=== PATIENT | female | born 1970 | race Two or more races ===

== ENCOUNTER 2019-07-02 02:58 | Inpatient (IN) | payer OTHER ==
[2019-07-02] VITALS (26 sets, daily range): BP systolic 86–128; BP diastolic 48–86
[~2019-07-02] VITALS: Ht 165.1 cm; Wt 78.0 kg
--- NOTE | 2019-07-02 03:03 | NUR ---
SEIZURE PRECAUTIONS IMPLEMENTED. SUCTION READY AT BEDSIDE. SIDERAILS PADDED.
--- NOTE | 2019-07-02 03:07 | NUR ---
PATIENT CAME TO ER BED 5 C/O WITNESSED SEIZURE FROM HOME BY FAMILY BIBRA 60. PATIENT HAS A HISTORY OF SEIZURES. PATIENT WAS GIVEN 5MG OF VERSED ON THE FIELD. PATIENT IS ON NON-REBREATHER AT 15L/MIN. PATIENT IS AAOX0. PATIENT IS NOT AROUSABLE. BREATHING EVENLY AND UNLABORED. CONNECTED TO DENTURES LAB TECHNICIAN.
[2019-07-02] MEDS ORDERED: LORAZEPAM INJ 2 MG/ML VIAL ONE (03:12)
--- NOTE | 2019-07-02 03:12 | NUR ---
NOTED SEIZURE LASTING APPROX 2 MINUTES. PT PLACED ON NONREBREATHER, STILL ON CONTINUOUS TELEPHONE CLERK TELEGRAPH OFFICE. NO ORAL TRAUMA NOTED. WILL CONTINUE TO MONITOR
[2019-07-02] MEDS ORDERED: LORAZEPAM INJ 2 MG/ML VIAL IV ONE (03:30)
[2019-07-02] MEDS ORDERED: IV NS 0.9% 1,000 ML BAG IV ONE (03:30)
--- NOTE | 2019-07-02 03:36 | NUR ---
NOTED SECOND SEIZURE LAST APPROX 45 SEC
[2019-07-02] MEDS ORDERED: LEVETIRACETAM (500MG) 500 MG/5 ML VIAL IV ONE (03:42)
[2019-07-02 03:45] LABS: BASOPHILS % (AUTO) 0.2 % (0.0-2.0); EOSINOPHILS % (AUTO) 0.6 % (0.0-6.0); HEMATOCRIT 39 % (33-45); HEMOGLOBIN 12.7 g/dL (11.5-14.8); LYMPHOCYTES # (AUTO) 1.4 /CMM (0.8-4.8); LYMPHOCYTES % (AUTO) 12.1 % (20.0-44.0); MEAN CORPUSCULAR HGB CONC 33 g/dl (31.0-36.0); MEAN CORPUSCULAR VOLUME 91 fL (82-100); MONOCYTES # (AUTO) 0.7 /CMM (0.1-1.30); MONOCYTES % (AUTO) 5.9 % (2.0-12.0); NEUTROPHILS # (AUTO) 9.3 /CMM (1.8-8.9); NEUTROPHILS % (AUTO) 81.2 % (43.0-81.0); PLATELET COUNT (AUTO) 199 /CMM (150-450); RED BLOOD CELL COUNT(AUTO) 4.26 MIL/uL (4.0-5.2); WHITE BLOOD COUNT (AUTO) 11.5 K/uL (4.3-11.0)
[2019-07-02 03:47] LABS: CALCIUM, SERUM 8.6 mg/dL (8.5-10.1); CARBON DIOXIDE 21 mmol/L (21-32); CHLORIDE 102 mmol/L (98-107); CREATININE 1.3 mg/dL (0.6-1.3); GLUCOSE 104 mg/dL (74-106); POTASSIUM 3.7 mmol/L (3.5-5.1); SODIUM SERUM 140 mmol/L (136-145); UREA NITROGEN, BLOOD 11 mg/dL (7-18)
--- NOTE | 2019-07-02 03:50 | NUR ---
NOTED SEIZURE LASTING APPROX 1 MINUTE. PT STILL ON NONREBREATHER AND CONTINUOUS COMMUNITY REPRESENTATIVE AND PULSE OX. WILL CONTINUE TO MONITOR
--- NOTE | 2019-07-02 03:52 | NUR ---
Madelyn herrera in ED - 07/02/19 at 0357 by DAMIAN PT BROUGHT BY RADIOLOGY TO CT [facility]IA [facility]
--- NOTE | 2019-07-02 03:52 | NUR ---
PT BROUGHT BY RADIOLOGY TO CT PER ACLS PROTOCOL, RN AT BEDSIDE
[2019-07-02 03:53] LABS: ALANINE AMINOTRANSFERASE 19 U/L (12-78); ALBUMIN 3.7 g/dL (3.4-5.0); ALKALINE PHOSPHATASE 123 U/L (46-116); ASPARTATE AMINOTRANSFERASE 31 U/L (15-37); BILIRUBIN,DIRECT 0.1 mg/dL (0.0-0.2); BILIRUBIN,TOTAL 0.4 mg/dL (0.2-1.0); TOTAL PROTEIN, SERUM 7.7 g/dL (6.4-8.2)
[2019-07-02 03:56] LABS: ALCOHOL, BLOOD < 3 mg/dL (0-0)
[2019-07-02] MEDS ORDERED: LEVETIRACETAM (500MG) 500 MG in IV NS 0.9% 100 ML IV SCH (04:00)
--- NOTE | 2019-07-02 04:18 | NUR ---
NOTED SEIZURE LASTING APPROX 30 SECONDS. PT STILL ON CONTINUOUS ROAD CREW MEMBER AND PULSE OX. WILL CONTINUE TO MONITOR
[2019-07-02 04:21] LABS: ABG BASE EXCESS -9.7 mmol/L; ABG OXYGEN SATURATION 95.2 % (92.0-98.5); ABG PCO2 97.2 mmHg (35.0-45.0); ABG PH 6.996 (7.350-7.450); ABG PO2 116.2 mmHg (75.0-100.0); AaDO2 499.6 mmHg; COHb 0.3 % (0.5-1.5); MetHb 0.7 % (0.0-1.5); O2Hb 94.2 % (94.0-97.0); SITE, ABG Left Radial; VENT MODE, BG NRB 15L 100%
--- NOTE | 2019-07-02 04:45 | NUR ---
ETOMIDATE 20MG GIVEN PER DR. MENA'S ORDER AT THE BED SIDE
--- NOTE | 2019-07-02 04:46 | NUR ---
SUCCINYLCHOLINE [address] MENA'S ORDER AT THE BED SIDE
--- NOTE | 2019-07-02 04:48 | NUR ---
RT NOTES PT ORALLY INTUBATED BY RAMEZ VELAZCO WITH 7.5 ETT SECURED 25CM @THE LIP LINE. COLOR CHANGE CONFIRMED ON CO2 DETECTOR. MIST IN TUBE AND EQUAL CHEST RISE NOTED. PT PLACED ON MECH VENT ON ER ORDERED SETTINGS. PT SUCTIONED LARGE AMOUNT OF BLOODY SECRETIONS. ALARMS SET AND AUDIBLE. AMBUBAG AT BEDSIDE. VENT PLUGGED INTO RED OUTLET. WILL CONT TO MONITOR. Addendum: 07/02/19 at 0533 by FELICIA WINKLER RT Amended: Links added.
[2019-07-02] MEDS ORDERED: PROPOFOL 100 ML ONE (04:50)
--- NOTE | 2019-07-02 04:51 | NUR ---
DR. MENA ON THE PHONE WITH DR. HUA (WAN VELAZCO)
--- NOTE | 2019-07-02 04:52 | NUR ---
PT GOT INTUBATED SUCCESSFULLY AT THE BED SIDE BY DR. MENA .
--- NOTE | 2019-07-02 04:54 | NUR ---
DR. MENA ON THE PHONE WITH DR. LINO
[2019-07-02] MEDS ORDERED: SUCCINYLCHOLINE CHLORIDE 20 MG/ML VIAL IV ONE ×2 (05:00→09:45)
[2019-07-02] MEDS ORDERED: ETOMIDATE 2 MG/ML VIAL IV ONE ×2 (05:00→09:45)
--- NOTE | 2019-07-02 05:10 | NUR ---
ng was placed in the R nostril , gastric juice noted, placement checked by two RNs, x ray at the bed side
--- NOTE | 2019-07-02 05:11 | NUR ---
BED ASSIGNMENT 253
[2019-07-02] MEDS ORDERED: MIDAZOLAM 50 MG/10 ML VIAL ONE (05:19)
[2019-07-02] MEDS ORDERED: LEVE500T9 PO (05:22)
[2019-07-02 05:33] LABS: APPEARANCE,URINE Clear (CLEAR); BILIRUBIN,URINE Negative (NEGATIVE); BLOOD, URINE Small Ery/uL (NEGATIVE); COLOR,URINE Yellow (YELLOW); KETONES,URINE Negative (NEGATIVE); LEUKOCYTE ESTERASE ,URINE Negative (NEGATIVE); NITRITE, URINE Negative (NEGATIVE); PROTEIN,URINE 30 mg/dl (NEGATIVE); UGLUCOSE Negative (NEGATIVE)
--- NOTE | 2019-07-02 05:43 | NUR ---
REPORT GIVEN TO KAVYA HUNTER FOR NICHOLAS.
--- NOTE | 2019-07-02 05:44 | NUR ---
RECEIVED REPORT FROM ER NURSE MICHAEL HUNTER FOR NICHOLAS.
--- NOTE | 2019-07-02 05:57 | NUR ---
PT TRANSFERED PER ACLS PROTOCOL
[2019-07-02 05:58] LABS: BACTERIA,URINE Few /HPF (None Seen); SQUAMOUS EPITHELIAL CELL,UR Moderate /HPF (None Seen); WBC,URINE 0-2 /HPF (0-3)
[2019-07-02] MEDS ORDERED: PIPERACILLIN /TAZOBACTAM 3.375 G in IV D5W 50 ML IV SCH (06:00)
[2019-07-02] MEDS ORDERED: LEVETIRACETAM (500MG) 750 MG in IV NS 0.9% 100 ML IV SCH (06:00)
[2019-07-02] MEDS ORDERED: ALBUTEROL FS 2.5 MG/0.5 ML VIAL.NEB NEB PRN (06:00)
[2019-07-02] MEDS ORDERED: ACETAMINOPHEN 650 MG/SUPP.RECT RC PRN (06:00)
[2019-07-02 06:28] LABS: ABG BASE EXCESS -5.6 mmol/L; ABG OXYGEN SATURATION 96.6 % (92.0-98.5); ABG PCO2 54.9 mmHg (35.0-45.0); ABG PH 7.228 (7.350-7.450); ABG PO2 96.3 mmHg (75.0-100.0); AaDO2 561.8 mmHg; COHb 0.3 % (0.5-1.5); MetHb 0.2 % (0.0-1.5); O2Hb 96.1 % (94.0-97.0); SITE, ABG Right Radial
--- NOTE | 2019-07-02 06:29 | NUR ---
ABG RESULTS GIVEN TO CHARGE NURSE. CHARGE NURSE IS CONTACTING DR LINO. WAITING FOR FURTHER ORDERS.
[2019-07-02] MEDS: ENOXAPARIN SODIUM 40 MG/0.4 ML DISP.SYRIN SQ SCH (06:41)
[2019-07-02] MEDS ORDERED: PIPERACILLIN /TAZOBACTAM 3.375 G VIAL IV ONE (06:41)
--- NOTE | 2019-07-02 06:57 | NUR ---
FUR CLIPPER NOTES RECEIVED PATIENT FROM ER, PT IS A/O X0, CAME FROM HOME VIA AMBULANCE DUE TO SEIZURE. ADMITTING DIAGNOSIS IS SEIZURE DISORDER, PATIENT IS INTUBATED, WITH SETTING ORDERED. TRACH/ETT 7.5/25, AC 24, TV 450, FIO2 100%, AND PEEP OF 5. PATIENT IS PLACED ON MOTOR VEHICLE LICENSE CLERK WITH SINUS RHYTHM NOTED. PATIENT IS PLACED ON SEIZURE PRECAUTIONS. BED SIDE RAILS HAVE BEEN PADDED. PATIENT HAD ONE SEIZURE AT 0558 LASTS FOR 30SECONDS, PATIENT HAD A ANOTHER SEIZURE AT 0616 WHICH LASTED FOR 53 SECONDS, MD IS AWARE. PATIENT HAS A FOX CATHETER IN PLACE, INTACT AND DRAINING URINE. NGT IS IN PLACE IN THE LEFT NOSTRIL, INTACT, PATENT AND FLUSHED WELL. CHECKED PLACEMENT VIA AUSCULTATION. IV ACCESS ON LEFT WRIST 20 GAUGE AND RAC #18, BOTH INTACT PATENT AND FLUSHED WELL. PATIENT WAS SWABBED FOR COVID IN THE ER, ISOLATION PRECAUTIONS ARE IN PLACE. ISOLATION IS OBSERVED FOR COVID R/O. PATIENT SAFETY IS BEING MAINTAINED, CALL LIGHT WITHIN REACH, WILL CONTINUE TO MONITOR.
[2019-07-02] MEDS ORDERED: LORAZEPAM INJ 2 MG/ML VIAL IV PRN (07:00)
[2019-07-02] MEDS ORDERED: IV NS 0.9% 250 ML IV ONE (07:00)
[2019-07-02] MEDS ORDERED: phenytoin SODIUM IV 1,000 MG in IV NS 0.9% 100 ML IV STA (07:04)
[2019-07-02] MEDS: PROPOFOL 100 ML IV PRN ×4 (07:05→20:17)
--- NOTE | 2019-07-02 07:15 | NUR ---
DR. FLYNN NEUROLOGIST CALLED AND FACE TIME THE PATIENT. MD WILL PUT IN THE ORDERS. WILL ENDORSE TO AM NURSE FOR NICHOLAS.
--- NOTE | 2019-07-02 07:32 | NUR ---
ENDORSE PATIENT TO AM NURSE TO NICHOLAS.
--- NOTE | 2019-07-02 08:00 | NUR ---
ICU/RN INITIAL NOTES, AM RECEIVED REPORT FROM NIGHT NURSE. PT INTUBATED ETT 7.5/25CM AT THE LIP, ON VENT SETTINGS ORDERED BY MD. SEIZURE PRECAUTIONS TAKEN, PT BROUGHT IN FOR SEIZURE ACTIVITY. SINUS ON TELE. TEMP PROBE PLACE, PT NOTED TO HAVE FEVER 101.6, COOLING MEASURES TAKEN. PIV'S ASSESSED, LEFT INFILTRATED, WILL REMOVE. ORDERS RECEIVED FOR PICC LINE INSERTION. FOX CATH IN PLACE, DRAINING YELLOW URINE. RIGHT NGT IN PLACE, PLACEMENT VERIFIED. ON BILATERAL SOFT WRIST RESTRAINTS, WILL ASSESS PER PROTOCOL. ALL NEEDS WILL BE ATTENDED TO, SAFETY MEASURES TAKEN BED IN LOW POSITION, SIDE RAILS UP, CALL LIGHT WITHIN REACH
[2019-07-02] MEDS: Potassium Chloride 10 MEQ in IV D5/ 0.9% NACL 1,000 ML IV PRN ×2 (08:43→22:54)
[2019-07-02 08:55] LABS: ABG BASE EXCESS -3.9 mmol/L; ABG OXYGEN SATURATION 96.7 % (92.0-98.5); ABG PCO2 29.3 mmHg (35.0-45.0); ABG PH 7.434 (7.350-7.450); AaDO2 454.6 mmHg; COHb 0.1 % (0.5-1.5); MetHb 0.2 % (0.0-1.5); O2Hb 96.4 % (94.0-97.0); SITE, ABG Right Radial; VENT MODE, BG AC 24 450 80% +5
[2019-07-02] MEDS: FAMOTIDINE/PF INJ 20 MG/2 ML VIAL IV SCH ×2 (09:36→20:33)
[2019-07-02] MEDS: LEVETIRACETAM (500MG) 1,500 MG in IV NS 0.9% 100 ML IV SCH ×2 (10:15→21:02)
[2019-07-02] MEDS ORDERED: PIPERACILLIN /TAZOBACTAM 3.375 G in IV D5W 100 ML IV SCH (13:00)
[2019-07-02] MEDS: PIPERACILLIN /TAZOBACTAM 3.375 G in IV D5W 50 ML IV SCH ×2 (13:29→17:47)
[2019-07-02] MEDS: PHENYTOIN SODIUM IV 50 MG/ML VIAL IV SCH ×2 (13:29→20:33)
--- NOTE | 2019-07-02 13:58 | NUR ---
ICU/RN: LEFT UPPER ARM PICC LINE INSERTED. PATENT AND INTACT, NO S/S OF BLEEDING NOTED. WILL CONTINUE TO MONITOR. CONSENT IN CHART.
--- NOTE | 2019-07-02 15:00 | NUR ---
ICU/RN: REPORT ENDORSED TO ELSA THOMAS. PT INTUBATED AND SEDATED, ON VENT SETTINGS ORDERED BY MD, NO ACUTE DISTRESS NOTED. SINUS ON TELE. ALL NEEDS ATTENDED TO, SAFETY MEASURES TAKEN, BED BATH GIVEN, TURNED AND REPOSITIONED. BILATERAL SOFT WRIST RESTRAINTS, ASSESSED PER PROTOCOL.
--- NOTE | 2019-07-02 19:30 | NUR ---
PIPING MANAGER NOTES RECEIVED PATIENT IN BED INTUBATED, VENT SETTING TOLERATING WELL ORDERED. SR ON TELE. NO S/S OF DISTRESS NOTED. IV SITES INTACT PATENT FLUSHING WELL. NGT IN PLACE. PLACEMENT VERIFIED. F/C INTACT DARNING WELL WITH GRAVITY. BILATERAL SOFT RESTRAINS IN PLACE, WILL ASSESS PER PROTOCOL. SAFETY MEASURES IN PLACE, BED IN LOW AND LOCKED POSITION. CALL LIGHT WITHIN REACH. WILL CONT TO MONITOR.
--- NOTE | 2019-07-02 20:30 | NUR ---
RT NOTE: RECEIVED PT ON [facility] VENT WITH 7.5 ETT SECURED 25CM @THE LIP LINE PER MD ORDERS. ALARMS SET AND AUDIBLE. AMBUBAG AT BEDSIDE. VENT PLUGGED INTO RED OUTLET. SX DONE PRN. WILL CONT TO MONITOR. Addendum: 07/03/19 at 0422 by GLADIS SANDS RT Amended: Links added.
--- NOTE | 2019-07-02 21:00 | NUR ---
WHILE GETTING PHENYTOIN FROM [facility] THEIR WAS A MESSAGE THAT MEDICATION MAYBE . MEDICATION'S DATE ON THE VIAL IS 09/2019 VERIFIED WITH ALANIS RN.
[2019-07-03] VITALS (18 sets, daily range): BP systolic 88–119; BP diastolic 38–74
[2019-07-03] MEDS: PIPERACILLIN /TAZOBACTAM 3.375 G in IV D5W 50 ML IV SCH ×3 (00:01→13:40)
[2019-07-03] MEDS: PROPOFOL 100 ML IV PRN ×2 (01:29→06:59)
[2019-07-03 04:24] LABS: BASOPHILS % (AUTO) 0.1 % (0.0-2.0); EOSINOPHILS % (AUTO) 0.1 % (0.0-6.0); HEMATOCRIT 34 % (33-45); HEMOGLOBIN 11.2 g/dL (11.5-14.8); LYMPHOCYTES # (AUTO) 0.6 /CMM (0.8-4.8); MEAN CORPUSCULAR HGB CONC 33 g/dl (31.0-36.0); MEAN CORPUSCULAR VOLUME 89 fL (82-100); MONOCYTES # (AUTO) 0.8 /CMM (0.1-1.30); MONOCYTES % (AUTO) 6.4 % (2.0-12.0); NEUTROPHILS # (AUTO) 11.1 /CMM (1.8-8.9); NEUTROPHILS % (AUTO) 88.4 % (43.0-81.0); PLATELET COUNT (AUTO) 125 /CMM (150-450); RED BLOOD CELL COUNT(AUTO) 3.82 MIL/uL (4.0-5.2); WHITE BLOOD COUNT (AUTO) 12.6 K/uL (4.3-11.0)
[2019-07-03 04:42] LABS: CALCIUM, SERUM 7.7 mg/dL (8.5-10.1); CREATININE 0.8 mg/dL (0.6-1.3); MAGNESIUM 2.1 mg/dL (1.8-2.4); POTASSIUM 3.5 mmol/L (3.5-5.1)
[2019-07-03] MEDS: PHENYTOIN SODIUM IV 50 MG/ML VIAL IV SCH (05:11)
--- NOTE | 2019-07-03 05:11 | NUR ---
WHILE GETTING PHENYTOIN FROM [facility] THEIR WAS A MESSAGE THAT MEDICATION MAYBE . MEDICATION'S DATE ON THE VIAL IS 09/2019 VERIFIED WITH ALANIS RN.
[2019-07-03] MEDS: ENOXAPARIN SODIUM 40 MG/0.4 ML DISP.SYRIN SQ SCH (06:03)
--- NOTE | 2019-07-03 07:13 | NUR ---
LARD BLEACHER NOTES ENDORSE PATIENT TO AM NURSE, PATIENT INTUBATED, VENT SETTING TOLERATING WELL. NO SEIZURE ACTIVITY NOTED DURING SHIFT. IV'S RUNNING WELL. BREATHING NORMAL NO SOB. RESPIRATION UNLABORED. F/C INTACT DARNING WELL WITH GRAVITY. ALL NEEDS ARE ATTENDED. KEPT CLEAN DRY AND COMFORTABLE. SAFETY MEASURES IN PLACE, BED IN LOW AND LOCKED POSITION. CALL LIGHT WITHIN REACH. ENDORSE PATIENT TO AM NURSE FOR NICHOLAS.
[2019-07-03 07:59] LABS: ABG BASE EXCESS -0.9 mmol/L; ABG OXYGEN SATURATION 99.3 % (92.0-98.5); ABG PCO2 33.3 mmHg (35.0-45.0); ABG PH 7.448 (7.350-7.450); ABG PO2 310.1 mmHg (75.0-100.0); AaDO2 225.3 mmHg; COHb 0.3 % (0.5-1.5); MetHb 0.2 % (0.0-1.5); O2Hb 98.8 % (94.0-97.0); SITE, ABG Right Radial; VENT MODE, BG AC 24 450 80% +5
[2019-07-03] MEDS: FAMOTIDINE/PF INJ 20 MG/2 ML VIAL IV SCH (08:22)
[2019-07-03] MEDS: LEVETIRACETAM (500MG) 1,500 MG in IV NS 0.9% 100 ML IV SCH (08:22)
--- NOTE | 2019-07-03 09:30 | NUR ---
FOOD GENERAL MANAGER NOTE UPDATES GIVEN TO BROTHER. PATIENT PLACED ON SIMV 4 TV 450, PEEP [address] F[address]%. DR DRUMMOND AT BEDSIDE. AWARE. WILL CONTINUE TO MONITOR.
[2019-07-03] MEDS ORDERED: DC PROPOFOL WHEN EXTUBATED XX PRN (10:00)
[2019-07-03] MEDS: Potassium Chloride 10 MEQ in IV D5/ 0.9% NACL 1,000 ML IV PRN (10:35)
[2019-07-03 11:10] LABS: ABG BASE EXCESS -5.8 mmol/L; ABG OXYGEN SATURATION 97.7 % (92.0-98.5); ABG PCO2 27.8 mmHg (35.0-45.0); ABG PH 7.415 (7.350-7.450); ABG PO2 122.2 mmHg (75.0-100.0); COHb 0.3 % (0.5-1.5); MetHb 0.7 % (0.0-1.5); O2Hb 96.7 % (94.0-97.0); SITE, ABG Left Brachial; VENT MODE, BG SIMV 4 PS 15 40% +5
--- NOTE | 2019-07-03 11:16 | NUR ---
PROVER NOTE PATIENT VERY RESTLESS, NGT PULLED OUT. BILATERAL WRIST RESTRAINTS IN PLACE. OBEYS SIMPLE COMMANDS, OPEN EYES. RTS AT BEDSIDE, ABG RELAYED TO DR DRUMMOND, DR DRUMMOND AT BEDSIDE WITH ORDERS FOR EXTUBATION
--- NOTE | 2019-07-03 11:26 | NUR ---
PT EXTUBATED PER BHANU VELAZCO. PT SUX ORALLY AND ET TUBE. PLACED ON 4LPM HUMIDIFIED O2. ELSA RIVERA AWARE. PT LILIANA WELL ATT Addendum: 07/03/19 at 1127 by NIRAV BOYKIN RT Amended: Links added.
[2019-07-03] MEDS ORDERED: PHEN100C4 PO (12:48)
[2019-07-03] MEDS ORDERED: PIPE3.379 IV (12:48)
[2019-07-03] MEDS ORDERED: LEVE250T2 PO (12:48)
[2019-07-03] MEDS ORDERED: PHENYTOIN EXTENDED RELEASE 100 MG CAPSULE PO SCH ×2 (13:00→21:00)
[2019-07-03] MEDS ORDERED: PHENYTOIN SODIUM IV 50 MG/ML VIAL IV ONE (13:55)
--- NOTE | 2019-07-03 14:00 | NUR ---
SPRAY DRIER NOTE RECEIVED PHONE CALL FROM [facility], PER ADOLFOWAGurjit PATIENT WILL BE TRANSFERRED TO [facility] TODAY.
--- NOTE | 2019-07-03 16:00 | NUR ---
CHEMICAL EQUIPMENT CONTROLLER NOTE PATIENT IS ALERT AND ORIENTED TO SELF AND PLACE. PATIENT BEING UNCOOPERATIVE, REMOVING MONITORING DEVICES AND OXYGEN. DESPITE EXPLANATION PATIENT STILL REMOVING LINES AND MONITORING DEVICES. BILATERAL SOFT WRIST RESTRAINTS IN PLACE. FREQUENT REORIENTATION DONE. WILL CONTINUE TO MONITOR.
--- NOTE | 2019-07-03 18:10 | NUR ---
CONFIGURATION SPECIALIST NOTE PATIENT DISCHARGED TO [facility] ROOM 410 VIA [facility] TRANSPORT. PATIENT IN STABLE CONDITION. ALL BELONGINGS TAKEN WITH PATIENT. REPORT GIVEN TO ELSA GUERRA. BROTHER SEAN INFORMED OF TRANSPORT.
[2019-07-03] MEDS ORDERED: LEVETIRACETAM (250 MG) 250 MG TABLET PO SCH (21:00)
== END 2019-07-03 20:09 | disposition short-term general hospital (02) | DRG 208 ==
LOC: ER 02:59 → ICU 05:14
PROVIDERS: ADMIT Internal Medicine; ATTEND Internal Medicine
PROC: 5A1945Z Respiratory Ventilation, 24-96 Consecutive Hours (ICD-10-PCS; principal; 2019-07-02)
PROC: 0BH17EZ Insertion of Endotracheal Airway into Trachea, Via Natural or Artificial Opening (ICD-10-PCS; principal; 2019-07-02)
PROC: B548ZZA Ultrasonography of Superior Vena Cava, Guidance (ICD-10-PCS; 2019-07-03)
PROC: 02HV33Z Insertion of Infusion Device into Superior Vena Cava, Percutaneous Approach (ICD-10-PCS; 2019-07-03)
DX: J69.0 Pneumonitis due to inhalation of food and vomit (principal); J96.01 Acute respiratory failure with hypoxia; G40.911 Epilepsy, unspecified, intractable, with status epilepticus; Z79.899 Other long term (current) drug therapy; V89.2XXS Person injured in unspecified motor-vehicle accident, traffic, sequela; Z87.828 Personal history of other (healed) physical injury and trauma
CPT/HCPCS: 31720; 36415; 36569; 36600; 70450-TC; 71045-TC; 80048-TC; 80076-TC; 80177; 80185-TC; 80305; 81000-TC; 82803-TC; 82962-TC; 83735-TC; 84703-TC; 85025-TC; 85730-TC; 87081-TC; 94002-TC; 94003-TC; 94640-TC; 95819-TC; C1751; G0378; G0480; J0330; J1165; J1650; J1953; J2060; J2250; J2543; J3480; J3490; J7030; J7042; J7050; J7060; U0003-CS

== ENCOUNTER 2019-12-25 05:27 | Inpatient (IN) | payer OTHER ==
[~2019-12-25] VITALS: Ht 167.6 cm; Wt 74.8 kg
[2019-12-25] VITALS (46 sets, daily range): BP systolic 86–118; BP diastolic 39–68
[~2019-12-25 05:27] MED LIST: LEVE250T2 PO; PHEN100C4 PO; PIPE3.379 IV
--- NOTE | 2019-12-25 05:30 | NUR ---
PT [id number] FROM HOME C/O SEIZURE 2X RN DOCUMENTATION. PER RA, BS 125. PT RECEIVED VERSED 5 MG IM RN DOCUMENTATION. PT LETHARGIC, RESPIRATIONS EVEN AND UNLABORED W/ NAD NOTED. PT PLACED ON 15 LPM O2 VIA NRB. PT CONNECTED TO THE JACKSCREW MAN AND POX. SEIZURE PRECAUTIONS IMPLEMENTED.
[2019-12-25 05:49] LABS: BASOPHILS # (AUTO) 0.1 /CMM (0.0-0.2); BASOPHILS % (AUTO) 0.4 % (0.0-2.0); EOSINOPHILS % (AUTO) 1.8 % (0.0-6.0); HEMATOCRIT 44 % (33-45); HEMOGLOBIN 13.7 g/dL (11.5-14.8); LYMPHOCYTES # (AUTO) 3.9 /CMM (0.8-4.8); LYMPHOCYTES % (AUTO) 30.3 % (20.0-44.0); MEAN CORPUSCULAR HGB CONC 31 g/dl (31.0-36.0); MEAN CORPUSCULAR VOLUME 98 fL (82-100); MONOCYTES # (AUTO) 1.1 /CMM (0.1-1.30); MONOCYTES % (AUTO) 8.8 % (2.0-12.0); NEUTROPHILS # (AUTO) 7.5 /CMM (1.8-8.9); NEUTROPHILS % (AUTO) 58.7 % (43.0-81.0); PLATELET COUNT (AUTO) 230 /CMM (150-450); WHITE BLOOD COUNT (AUTO) 12.8 K/uL (4.3-11.0)
--- NOTE | 2019-12-25 05:51 | NUR ---
PT TAKEN TO RADIOLOGY FOR CT
--- NOTE | 2019-12-25 05:51 | NUR ---
URINE COLLECTED AND SENT TO LAB
[2019-12-25 05:54] LABS: CALCIUM, SERUM 9.4 mg/dL (8.5-10.1); CARBON DIOXIDE 11 mmol/L (21-32); CHLORIDE 104 mmol/L (98-107); CREATININE 1.3 mg/dL (0.6-1.3); GLUCOSE 132 mg/dL (74-106); POTASSIUM 3.7 mmol/L (3.5-5.1); SODIUM SERUM 139 mmol/L (136-145); UREA NITROGEN, BLOOD 13 mg/dL (7-18)
[2019-12-25 05:59] LABS: ALANINE AMINOTRANSFERASE 11 U/L (12-78); ALBUMIN 3.7 g/dL (3.4-5.0); ALCOHOL, BLOOD < 3 mg/dL (0-0); ALKALINE PHOSPHATASE 115 U/L (46-116); ASPARTATE AMINOTRANSFERASE 16 U/L (15-37); BILIRUBIN,DIRECT 0.1 mg/dL (0.0-0.2); BILIRUBIN,TOTAL 0.4 mg/dL (0.2-1.0); TOTAL PROTEIN, SERUM 8.3 g/dL (6.4-8.2)
--- NOTE | 2019-12-25 06:00 | NUR ---
PT BACK FROM RADIOLOGY FROM CT
--- NOTE | 2019-12-25 06:02 | NUR ---
SEAN LOZOYA (PT'S BROTHER) [phone]
[2019-12-25] MEDS ORDERED: LEVETIRACETAM (500MG) 500 MG/5 ML VIAL IV ONE (06:03)
--- NOTE | 2019-12-25 06:29 | NUR ---
PT SEIZED FOR APPROXIMATELY 1 MINUTE. MD SALTER.
[2019-12-25] MEDS ORDERED: LORAZEPAM INJ 2 MG/ML VIAL IV ONE (06:30)
[2019-12-25] MEDS ORDERED: LORAZEPAM INJ 2 MG/ML VIAL ONE (06:30)
[2019-12-25] MEDS ORDERED: LEVETIRACETAM (500MG) 1,000 MG in IV NS 0.9% 100 ML IV SCH ×2 (06:30→07:30)
--- NOTE | 2019-12-25 06:32 | NUR ---
PT NOTED DESATTING AT HIGH 60'S%. MD AWARE. MD AT BEDSIDE
[2019-12-25] MEDS ORDERED: PROPOFOL 100 ML ONE ×2 (06:37→09:37)
[2019-12-25] MEDS ORDERED: PROPOFOL 200 MG/20 ML VIAL IV ONE (07:00)
--- NOTE | 2019-12-25 07:00 | NUR ---
PT STARTED TO SEIZE FOR APPROXIMATELY 30 SECONDS. MD SALTER
[2019-12-25] MEDS ORDERED: PHENOBARBITAL SODIUM 130 MG/ML VIAL ONE (07:02)
--- NOTE | 2019-12-25 07:29 | NUR ---
PT STARTED TO SEIZE FOR APPROXIMATELY FOR 15 SECONDS. MD SALTER
[2019-12-25] MEDS ORDERED: PHENYTOIN SODIUM IV 1,000 MG in IV NS 0.9% 100 ML IV ONE (07:30)
[2019-12-25] MEDS ORDERED: LEVETIRACETAM (500MG) 1,000 MG in IV NS 0.9% 100 ML IV ONE (07:30)
[2019-12-25] MEDS ORDERED: PHENOBARBITAL SODIUM 1,000 MG in IV NS 0.9% 80 ML IV ONE (07:30)
[2019-12-25] MEDS ORDERED: PROPOFOL 100 ML IV ONE (07:30)
--- NOTE | 2019-12-25 07:43 | NUR ---
PT IN BED. SEDATED. KEPPRA AND DILANTIN CURRENTLY RUNNING PER MD ORDERS. VS CHECKED.
--- NOTE | 2019-12-25 07:46 | NUR ---
COVID NEGATIVE RESULT.
--- NOTE | 2019-12-25 07:47 | NUR ---
ICU BED 258
[2019-12-25 07:56] LABS: ABG OXYGEN SATURATION 98.3 % (92.0-98.5); ABG PCO2 47.8 mmHg (35.0-45.0); ABG PH 7.211 (7.350-7.450); ABG PO2 168.5 mmHg (75.0-100.0); AaDO2 496.7 mmHg; COHb 0.3 % (0.5-1.5); MetHb 0.5 % (0.0-1.5); O2Hb 97.5 % (94.0-97.0); SITE, ABG Right Radial; VENT MODE, BG AC 22 500 +5 100%
--- NOTE | 2019-12-25 08:43 | NUR ---
REPORT GIVEN TO BERTIN HUNTER IN ICU. ACCORDING TO ICU, PT WILL BE GOING TO 257. INVESTIGATIVE RESEARCH SPECIALIST AWARE.
[2019-12-25] MEDS ORDERED: LEVE750T10 PO (10:02)
--- NOTE | 2019-12-25 10:20 | NUR ---
pt was brought to rm 257
--- NOTE | 2019-12-25 10:20 | NUR ---
ADVERTISING OPERATIONS COORDINATORRESEARCH TECH NOTES RECEIVED PATIENT FROM ER INTUBATED BECAUSE FAILURE OF RESPIRATION, AND STATUS EPILEPTICUS. ETT SIZE 7.5/30, OGT INTACT, PATIENT ON MONITOR, SR -80. PATIENT HAS NO ACUTE RESPIRATORY DISTRESS, CLEAR LUNGS SOUNDS BILATER SITES, CHECKED LABS, AND X-RAY ETT PLACEMENT. HOB KEEP ELEVATED FOR ASPIRATION PRECAUTION. V/S STABLE, BOWEL SOUNDS PRESENT IN FOUR QUADRANTS OF ABDOMEN, IV ACCESS ON LEFT AC AREA INTACT, AND RIGHT HAND INTACT. SKIN INTACT DURING ASSESSMENT. SOFT WRIST RESTRAIN BILATERAL ARMS, CHECKED CIRCULATION. PATIENT HAS FOX CATHETER DRAINING LIGHT YELLOW OUTPUT, AND NOTED PATIENT ON BLOODY DISCHARGE MENSTRUATION PERIOD AT THIS TIME. PATIENT ON DIPROVAN DRIP 20 MCG/HR SEDATED AT THIS TIME. CALL LIGHT WITHIN TO REACH, SIDE RAILS UP X3, BED LOCKED. WILL CONTINUED MONITORING.
[2019-12-25] MEDS ORDERED: PROPOFOL 100 ML IV PRN (10:30)
[2019-12-25] MEDS: IV D5/ 0.9% NACL 1,000 ML IV PRN (10:54)
--- NOTE | 2019-12-25 11:00 | NUR ---
YARD TRUCK DRIVER NOTES SEDATION VECATION DONE. PATIENT STABLE, NO ACUTE RESPIRATORY DISTRESS, V/S STABLE, CONTINUED MONITORING.
--- NOTE | 2019-12-25 11:40 | NUR ---
RN NOTES PATIENT AGRESSIVELY AGITATED INCREASED DIPROVAN 5 MCG/HR , WILL MONITORING. STARTED D5NS AT 100 ML/HR ON RIGHT HAND INTACT. KEEP HOB ELEVATED.
[2019-12-25] MEDS: PIPERACILLIN /TAZOBACTAM 3.375 G in IV D5W 50 ML IV SCH ×2 (12:21→16:58)
[2019-12-25] MEDS: PHENYTOIN SODIUM IV 100 MG/2ML VIAL IV SCH ×2 (13:31→16:19)
--- NOTE | 2019-12-25 15:15 | NUR ---
GLOST KILN PLACER NOTES GET CALL FROM NEUROLOGIST DR JAIME GET TO ORDER STAT EEG, ORDER TAKEN AND CARRIED OUT.
--- NOTE | 2019-12-25 15:40 | NUR ---
METAL MIXER NOTES PATIENT GETTING EEG AT THIS TIME.
[2019-12-25] MEDS: FAMOTIDINE/PF INJ 20 MG/2 ML VIAL IV SCH (16:19)
[2019-12-25] MEDS: PROPOFOL 10MG/ML 50ML 50 ML IV PRN ×2 (17:39→21:40)
--- NOTE | 2019-12-25 18:30 | NUR ---
SPEECH PATHOLOGIST ASSISTANT NOTES PM CARE PROVIDED. PATIENT HAS NO ACUTE RESPIRATORY DISTRESS, V/S STABKE T-99.7 AT THIS TIME ORAL, ETT TUBE TO VENT SETTING ORDERED. PATIENT SEDATED SEDATION VACATION DONE. SUCTIONED, AND ORAL CARE PROVIDED, FOX CATHETER DRAINING LIGHT YELLOW OUTPUT. REASSESSED MEDICAL RESTRAIN PER PROTOCOL. ASSIST TURN AND REPOSTION Q 2HR, , INFUSING D5NS AT 75 ML/HR ON RIGHT HAND INTACT. ADMINISTERED SCHEDULED MEDICATION. CALL LIGHT WITHIN TO REACH BED ALARM ON, SIDE RAILS UP X3. WILL ENDORSED ONCOMING NURSE FOLLOW PLAN OF CARE.
[2019-12-25] MEDS ORDERED: IV NS 0.9% 1,000 ML IV ONE (19:30)
[2019-12-25] MEDS ORDERED: IV NS 0.9% 250 ML IV PRN (20:30)
[2019-12-25] MEDS: KEPPRA 1000 MG in IV NS 100 ML IV SCH (20:31)
[2019-12-25] MEDS ORDERED: PHENYTOIN SODIUM IV 100 MG/2ML VIAL IV SCH (21:00)
[2019-12-26] VITALS (38 sets, daily range): BP systolic 91–137; BP diastolic 46–80
[2019-12-26] MEDS: IV D5/ 0.9% NACL 1,000 ML IV PRN (00:30)
[2019-12-26] MEDS: PROPOFOL 10MG/ML 50ML 50 ML IV PRN ×4 (02:53→07:27)
[2019-12-26 04:18] LABS: BASOPHILS % (AUTO) 0.2 % (0.0-2.0); EOSINOPHILS % (AUTO) 0.1 % (0.0-6.0); HEMATOCRIT 35 % (33-45); HEMOGLOBIN 11.6 g/dL (11.5-14.8); LYMPHOCYTES # (AUTO) 1.1 /CMM (0.8-4.8); LYMPHOCYTES % (AUTO) 8.3 % (20.0-44.0); MEAN CORPUSCULAR HGB CONC 33 g/dl (31.0-36.0); MEAN CORPUSCULAR VOLUME 91 fL (82-100); MONOCYTES # (AUTO) 1.2 /CMM (0.1-1.30); NEUTROPHILS # (AUTO) 10.9 /CMM (1.8-8.9); NEUTROPHILS % (AUTO) 82.4 % (43.0-81.0); PLATELET COUNT (AUTO) 134 /CMM (150-450); RED BLOOD CELL COUNT(AUTO) 3.79 MIL/uL (4.0-5.2); WHITE BLOOD COUNT (AUTO) 13.2 K/uL (4.3-11.0)
[2019-12-26 04:19] LABS: CALCIUM, SERUM 7.7 mg/dL (8.5-10.1)
[2019-12-26 04:22] LABS: PHENYTOIN (DILANTIN) 10.1 ug/ml (10.0-20.0)
[2019-12-26 04:25] LABS: ALBUMIN 2.7 g/dL (3.4-5.0); BILIRUBIN,TOTAL 1.6 mg/dL (0.2-1.0)
[2019-12-26] MEDS: PIPERACILLIN /TAZOBACTAM 3.375 G in IV D5W 50 ML IV SCH ×6 (05:47→23:55)
--- NOTE | 2019-12-26 06:55 | NUR ---
RN NOTES 0200 AM - RECEIVED PATIENT SEDATED WITH DIPRIVAN ORALLY INTUBATED WITH ETT 7.5/ 23CM AT LIP WITH VENT SETTING AC 22 TV 550 FIO2 40% PEEP 5 SR ON TELE MONITOR. WITH OGT INTACT AND FLUSHED WELL PATENT CHECKED WITH NO RESIDUAL. SKIN IS INTACT BILATERAL RESTRAINT KEPT IN PLACED CIRCULATION CHECKED. IV SITE ON RH AND LAC G 20 WITH D5NS @ 75 ML.HR AND PROPOFOL TITRATED PROTOCOL ORDERED. NO EPISODE OF SEIZURE. PATIENT REMAINED SEDATED. IV ATB TOLERATED WELL. KEPT PT CLEAN AND DRY. WILL CONTINUE POC.
--- NOTE | 2019-12-26 08:00 | NUR ---
received pt from filter press tender, sedated on diprivan at 30mcg, SR, intubated, sat well, NPO, f/c good output, v/s stable, no pain, pt turned and repositioned.
[2019-12-26] MEDS: FAMOTIDINE/PF INJ 20 MG/2 ML VIAL IV SCH ×2 (08:18→16:22)
[2019-12-26] MEDS: ENOXAPARIN SODIUM 40 MG/0.4 ML DISP.SYRIN SQ SCH (08:18)
[2019-12-26] MEDS: PHENYTOIN SODIUM IV 100 MG/2ML VIAL IV SCH ×3 (08:18→16:22)
--- NOTE | 2019-12-26 08:49 | NUR ---
off sedation, on SIMV now
[2019-12-26] MEDS: KEPPRA 1000 MG in IV NS 100 ML IV SCH ×2 (08:54→19:52)
[2019-12-26] MEDS ORDERED: POTASSIUM CHLORIDE 10 MEQ/50 ML PREMIXED IVPB FOR PERIPHERAL LINE IV ONE (09:00)
[2019-12-26] MEDS: POTASSIUM CL. PREMIX PERIPHER. 50 ML IV SCH ×4 (09:33→13:08)
[2019-12-26 09:49] LABS: ABG OXYGEN SATURATION 98.9 % (92.0-98.5); ABG PCO2 25.6 mmHg (35.0-45.0); ABG PH 7.471 (7.350-7.450); ABG PO2 144.6 mmHg (75.0-100.0); AaDO2 111.2 mmHg; MetHb 0.4 % (0.0-1.5); O2Hb 97.5 % (94.0-97.0); PEEP,BG 5 cm H2O; SITE, ABG Right Radial; VENT MODE, BG SIMV 4 PSV 15; VT, ABG 550 mL
[2019-12-26] MEDS: Potassium Chloride 20 MEQ in IV D5/ 0.9% NACL 1,000 ML IV PRN ×2 (09:57→19:55)
--- NOTE | 2019-12-26 10:30 | NUR ---
pt successfully extubated, drowsy, following commands, on 3L 02 sat 100%.
--- NOTE | 2019-12-26 16:51 | NUR ---
pt is resting in the bed, drowsy, follows commands, SR, sat well on 2L 02, good urine output, v/s stable, no pain, pt cleaned, changed and repostioned.
--- NOTE | 2019-12-26 19:15 | NUR ---
RN NOTE RECEIVED PATIENT IN BED, AO X4, APPPEARS WEAK. PATIENT IN NO S/SX OF ACUTE DISTRESS AT THIS TIME. PATIENT'S BREATHING IS EVEN AND UNLABORED. PATIENT IS ON 2 L OF OXYGEN VIA NC; TOLERATING WELL, SATURATING >95%. PATIENT ON TELE MONITOR READING HR IS 91. NOTED IV SITE AT LAC G20 WITH D5NS + 20 MEQ KCL INFUSING AT 100 ML/HR, AND NS AT TKO; PATENT AND FLUSHING WELL, NO S/S OF INFECTION OR INFILTRATION. FOX CATH CONNECTED TO URINE BAG IN PLACE, DRAINING TO A CLEAR YELLOW OUTPUT. ASPIRATION PRECAUTIONS MAINTAINED, SAFETY MEASURES IMPLEMENTED PER PROTOCOL. PATIENT BED ALARM IS ON. HEAD OF BED ELEVATED. BED IS LOCKED, IN LOWEST POSITION AND SIDE RAILS UP. CALL LIGHT WITHIN REACH OF THE PATIENT. WILL CONTINUE TO MONITOR AND REASSESS FOR ANY CHANGES. Addendum: 12/26/19 at 2048 by NOE JOLLY RN PATIENT ON BEDSIDE MONITOR, READING SR WITH HR OF 91.
--- NOTE | 2019-12-26 20:10 | NUR ---
RN NOTE PATIENT REMAINS IN BED, NO SIGN OF DISTRESS NOTED, WITH D5NS + 20 MEQS KCL INFUSING AT 100 ML/HR, AND KEPPRA 500 MG IN NS 100 ML INFUSING AT 220 ML/HR. VS STABLE, BREATHING IS NON LABORED, ON 2L OXYGEN VIA NC SATURATING 99%. ENDORSED TO NIRAV SEBASTIAN FOR CONTINUATION OF CARE.
[2019-12-27] VITALS (18 sets, daily range): BP systolic 98–122; BP diastolic 47–78
[2019-12-27 05:06] LABS: BASOPHILS % (AUTO) 0.2 % (0.0-2.0); EOSINOPHILS % (AUTO) 0.2 % (0.0-6.0); HEMATOCRIT 35 % (33-45); HEMOGLOBIN 11.9 g/dL (11.5-14.8); LYMPHOCYTES # (AUTO) 0.9 /CMM (0.8-4.8); LYMPHOCYTES % (AUTO) 8.8 % (20.0-44.0); MEAN CORPUSCULAR HGB CONC 34 g/dl (31.0-36.0); MEAN CORPUSCULAR VOLUME 90 fL (82-100); MONOCYTES # (AUTO) 0.7 /CMM (0.1-1.30); MONOCYTES % (AUTO) 7.3 % (2.0-12.0); NEUTROPHILS # (AUTO) 8.1 /CMM (1.8-8.9); NEUTROPHILS % (AUTO) 83.5 % (43.0-81.0); PLATELET COUNT (AUTO) 131 /CMM (150-450); RED BLOOD CELL COUNT(AUTO) 3.89 MIL/uL (4.0-5.2); WHITE BLOOD COUNT (AUTO) 9.7 K/uL (4.3-11.0)
[2019-12-27 05:15] LABS: CREATININE 0.6 mg/dL (0.6-1.3); MAGNESIUM 2.3 mg/dL (1.8-2.4); POTASSIUM 3.2 mmol/L (3.5-5.1)
[2019-12-27] MEDS: PIPERACILLIN /TAZOBACTAM 3.375 G in IV D5W 50 ML IV SCH (06:03)
--- NOTE | 2019-12-27 08:00 | NUR ---
received pt from inspector weights and measures, a/o x4, SR, RA sat well, v/s stable, no pain, seen by Dr Chavis.
[2019-12-27] MEDS: Potassium Chloride 20 MEQ in IV D5/ 0.9% NACL 1,000 ML IV PRN (08:15)
[2019-12-27] MEDS: KEPPRA 1000 MG in IV NS 100 ML IV SCH (08:15)
[2019-12-27] MEDS: FAMOTIDINE/PF INJ 20 MG/2 ML VIAL IV SCH (08:17)
[2019-12-27] MEDS: PHENYTOIN SODIUM IV 100 MG/2ML VIAL IV SCH (08:17)
[2019-12-27] MEDS: ENOXAPARIN SODIUM 40 MG/0.4 ML DISP.SYRIN SQ SCH (08:18)
[2019-12-27] MEDS ORDERED: POTASSIUM CHLORIDE 20 MEQ TAB.PRT.SR PO ONE (09:00)
[2019-12-27] MEDS ORDERED: AMOX/CLAVULANATE 875 MG TABLET PO SCH (09:00)
--- NOTE | 2019-12-27 11:32 | NUR ---
pt transferred to [facility], a/o x4, SR, RA, v/s stable, no pain, report given to Angela.
--- NOTE | 2019-12-27 12:00 | NUR ---
RECEIVED PT. FROM ICU.ORIENTED TO RM.F/C TO GRAVITY DRAINAGE WITH GOOD OUTPUT.SOMEWHAT SLUGGISH WHEN RESPONDING TO QUESTIONS.SIDE RAILS UP CALL GALVAN WITHIN REACH.
[2019-12-27] MEDS ORDERED: PHENYTOIN EXTENDED RELEASE 100 MG CAPSULE PO SCH (13:00)
--- NOTE | 2019-12-27 14:00 | NUR ---
PT'S BROTHER CALLING OFTEN.
--- NOTE | 2019-12-27 14:30 | NUR ---
DR. LINO CALLING WITH ORDERS TO TRANSFER TO [facility]. PT. AWARE.
[2019-12-27] MEDS ORDERED: FAMOTIDINE (20 MG) 20 MG TABLET PO SCH (17:00)
--- NOTE | 2019-12-27 18:10 | NUR ---
REPORT CALLED TO ELSA MARSHALL AT [facility].DRIVERS HERE AND GIVEN REPORT.TAKEN TO [facility] VIA AMB.IV LEFT IN WELL FOX CATH.
[2019-12-27] MEDS ORDERED: LEVETIRACETAM (250 MG) 250 MG TABLET PO SCH ×2 (21:00)
== END 2019-12-27 18:20 | disposition short-term general hospital (02) | DRG 208 ==
LOC: ER 05:30 → ICU 09:38 → MED 12-27 11:40
PROVIDERS: ADMIT Internal Medicine; ATTEND Internal Medicine
PROC: 5A1935Z Respiratory Ventilation, Less than 24 Consecutive Hours (ICD-10-PCS; principal; 2019-12-25)
PROC: 0BH17EZ Insertion of Endotracheal Airway into Trachea, Via Natural or Artificial Opening (ICD-10-PCS; 2019-12-25)
DX: J69.0 Pneumonitis due to inhalation of food and vomit (principal); J96.00 Acute respiratory failure, unspecified whether with hypoxia or hypercapnia; J98.11 Atelectasis; G40.901 Epilepsy, unspecified, not intractable, with status epilepticus; T17.990A Other foreign object in respiratory tract, part unspecified in causing asphyxiation, initial encounter; Z87.820 Personal history of traumatic brain injury; Z87.828 Personal history of other (healed) physical injury and trauma; Z79.899 Other long term (current) drug therapy; E87.6 Hypokalemia; X58.XXXA Exposure to other specified factors, initial encounter; Y92.9 Unspecified place or not applicable
CPT/HCPCS: 31720; 36415; 36600; 70450-TC; 71045-TC; 80048-TC; 80053-TC; 80076-TC; 80177; 80185-TC; 82803-TC; 82962-TC; 83735-TC; 84703-TC; 85025-TC; 85730-TC; 87081-TC; 94002-TC; 94003-TC; 94799-TC; 95819-TC; 99082-TC; A6253; C9803; G0378; G0480; J1165; J1650; J1953; J2060; J2543; J2560; J3480; J3490; J7030; J7040; J7042; J7050; J7060